=== PATIENT | female | born 1990 | race Caucasian/White ===

== ENCOUNTER 2017-05-17 08:29 | Emergency (ER) | payer SELFPAY ==
[~2017-05-17] VITALS: Ht 162.6 cm; Wt 97.5 kg
[~2017-05-17 08:29] MED LIST: ALBU8.5H IH; AMO875 PO; CETI10CA8 PO; CLOT15CR64 TP; DULERAPT INH; ETHI1TAB26 PO; FAMO20TA28 PO; FOLI-91 PO; LORA-788 PO; NORG1TAB76 PO; ONDA4TAB PO; PANT40TA65 PO; PRO25 PO; SODI51CR DT
--- NOTE | 2017-05-17 08:36 | ER Report ---
History and Physical Time Seen By MD: 08:35 HPI/ROS CHIEF COMPLAINT: Respiratory distress HISTORY OF PRESENT ILLNESS: Patient is a 26-year-old female with past medical history significant for asthma who presents to the emergency department with increased work of breathing and shortness of breath since 2 AM last night. The patient is out of her rescue inhaler so had no treatment prior to arrival to the emergency department. She is also has been complaining of flulike symptoms over the last 48 hours. She attempted to go to work today but because the shortness of breath was so pronounced she called off work and came to the emergency department. REVIEW OF SYSTEMS: Constitutional: Body aches, chills Eyes: No discharge. ENT: No sore throat. Cardiovascular: No chest pain, no palpitations. Respiratory: Dry cough, increased work of breathing and wheezing Gastrointestinal: No abdominal pain, no vomiting. Genitourinary: No hematuria. Musculoskeletal: No back pain. Skin: No rashes. Neurological: No headache. Allergies: Coded Allergies: latex (Verified Allergy, Intermediate, HIVES, 05/17/17) Home Meds Active Scripts Prednisone (PREDNISONE) 20 Mg Tablet, 60 MG PO QDAY, #12 TAB 0 Refills first dose on 05/18/17 Prov:YOLANDA YA MD 05/17/17 Albuterol Sulfate 0.083% (ALBUTEROL SULFATE 0.083%) 2.5 Mg/3 Ml Vial.neb, 2.5 MG INH Q4-6H for cough, #1 BOX 1 Refill Prov:YOLANDA YA MD 05/17/17 Reported Medications Cetirizine Hcl (ZYRTEC) 10 Mg Capsule, 10 MG PO QDAY, CAPSULE 07/06/15 Albuterol Sulfate 90 Mcg/Act (PROAIR HFA 90 MCG/ACT) 8.5 Gm Hfa.aer.ad, 1-2 PUFF IH 3-4XD, INHALER 07/06/15 Folic Acid/Mv,Fe,Other Min (ONE DAILY FOR WOMEN TABLET) 1 Each Tablet, 1 EACH PO QDAY 07/06/15 Mometasone/Formoterol (DULERA 200 MCG/5 MCG INHALER) 13 Gm Inh, 13 GM INH BID, INH 07/06/15 Discontinued Reported Medications Sodium Fluoride (SF 5000 PLUS) 51 Gm Cream..g., 51 GM DT QDAY 07/06/15 Norgestrel-Ethinyl Estradiol (CRYSELLE) 1 Each Tablet, 1 EACH PO QDAY 07/06/15 Clotrimazole/Betamethasone Dip (CLOTRIMAZOLE-BETAMETHASONE CRM) 15 Gm Cream..g. , 1 ROBER TP BID 07/06/15 Discontinued Scripts Pantoprazole Sodium (PANTOPRAZOLE SODIUM) 40 Mg Tablet.dr, 1 TAB PO BID, #60 TAB.SR 2 Refills Take 1 tablet 1/2 hour before your morning meal and 1 tablet 1/2 hour before your evening meal Prov:ADELINA JACKSON MD 07/06/15 Past Medical/Surgical History Past medical history for asthma Hx Smoking: Yes (5 CIGS/DAY SINCE 2010) Smoking Status: Current: Every Day Smoker Hx Alcohol Use: Yes Constitutional Vital Sign - Last 24 Hours 05/17/17 05/17/17 05/17/17 05/17/17 08:36 08:37 08:40 08:48 Temp 98.5 Pulse 122 109 Resp 28 B/P (MAP) 114/76 114/76 (89) Pulse Ox 82 O2 Delivery Room Air O2 Flow Rate 4.0 05/17/17 05/17/17 05/17/17 05/17/17 08:48 08:50 08:50 08:59 Pulse 112 Resp 24 Pulse Ox 93 96 O2 Delivery Nasal Cannula Nasal Cannula O2 Flow Rate 4.0 4.0 05/17/17 05/17/17 05/17/17 05/17/17 09:14 09:29 09:30 09:32 Pulse 116 105 Resp 23 B/P (MAP) 123/89 (100) 102/66 (78) Pulse Ox 92 05/17/17 05/17/17 05/17/17 05/17/17 09:32 09:35 09:35 09:35 Pulse 103 102 Resp 7 Pulse Ox 94 98 98 O2 Delivery Nasal Cannula Nasal Cannula O2 Flow Rate 4.0 4.0 05/17/17 05/17/17 05/17/17 05/17/17 10:00 10:05 10:08 10:08 Pulse 111 105 Resp 9 16 B/P (MAP) 98/73 (81) Pulse Ox 90 97 O2 Delivery Nasal Cannula O2 Flow Rate 4.0 05/17/17 05/17/17 05/17/1705/17/18 10:09 10:09 10:30 10:35 Pulse 106 118 Resp 21 B/P (MAP) 114/84 (94) Pulse Ox 99 89 O2 Delivery Nasal Cannula O2 Flow Rate 4.0 05/17/17 10:40 Pulse Ox 85 O2 Delivery Room Air Physical Exam General Appearance: The patient is alert, has no immediate need for airway protection and no signs of toxicity. She does have increased work of breathing Eyes: Pupils equal and round no pallor or injection. ENT, Mouth: Mucous membranes are moist. Respiratory: Patient has tachypnea, is using accessory muscles of respiration. Has audible wheeze with cough very decreased breath sounds Cardiovascular: Regular rate and rhythm. [ ] Gastrointestinal: Abdomen is soft and non tender, no masses, bowel sounds normal. Neurological: Awake and alert Skin: Warm and dry, no rashes. Musculoskeletal: Neck is supple non tender. Extremities are nontender, nonswollen and have full range of motion. Medical Decision Making Data Points Result Diagram: 05/17/17 0850 05/17/17 0850 Laboratory Hematology Test 05/17/17 08:40 05/17/17 08:50 Influenza Virus Type A (PCR) Negative (NEGATIVE) Influenza Virus Type B (PCR) Negative (NEGATIVE) Red Blood Count 5.54 M/uL (4.17-5.56) Mean Corpuscular Volume 87.8 fL (80.0-96.0) Mean Corpuscular Hemoglobin 29.9 pg (26.0-33.0) Mean Corpuscular Hemoglobin Concent 34.1 g/dL (32.0-36.0) Red Cell Distribution Width 13.2 % (11.5-14.5) Mean Platelet Volume 9.0 fL (7.2-11.1) Neutrophils (%) (Auto) 70.7 % (39.4-72.5) Lymphocytes (%) (Auto) 13.5 % (17.6-49.6) Monocytes (%) (Auto) 11.7 % (4.1-12.4) Eosinophils (%) (Auto) 3.0 % (0.4-6.7) Basophils (%) (Auto) 1.1 % (0.3-1.4) Nucleated RBC Relative Count (auto) 0.1 /100WBC Neutrophils # (Auto) 5.7 K/uL (2.0-7.4) Lymphocytes # (Auto) 1.1 K/uL (1.3-3.6) Monocytes # (Auto) 0.9 K/uL (0.3-1.0) Eosinophils # (Auto) 0.2 K/uL (0.0-0.5) Basophils # (Auto) 0.1 K/uL (0.0-0.1) Nucleated RBC Absolute Count (auto) 0.01 K/uL Sodium Level 140 mmol/L (137-145) Potassium Level 4.0 mmol/L (3.5-5.0) Chloride Level 107 mmol/L (98-107) Carbon Dioxide Level 19 mmol/L (22-31) Blood Urea Nitrogen 8 mg/dl (7-18) Creatinine 0.80 mg/dl (0.52-1.04) Glomerular Filtration Rate Calc > 60.0 Random Glucose 99 mg/dl (75-110) Calcium Level 9.5 mg/dl (8.4-10.2) Total Bilirubin 0.9 mg/dl (0.2-1.3) Aspartate Amino Transf (AST/SGOT) 40 U/L (0-35) Alanine Aminotransferase (ALT/SGPT) 54 U/L (0-56) Alkaline Phosphatase 83 U/L (0-126) Total Protein 8.2 gm/dl (6.3-8.2) Albumin 4.3 g/dl (3.5-5.0) Human Chorionic Gonadotropin, Qual Negative (NEGATIVE) Chemistry Test 05/17/17 08:40 05/17/17 08:50 Influenza Virus Type A (PCR) Negative (NEGATIVE) Influenza Virus Type B (PCR) Negative (NEGATIVE) White Blood Count 8.1 k/uL (4.5-11.0) Red Blood Count 5.54 M/uL (4.17-5.56) Hemoglobin 16.6 g/dL (12.0-16.0) Hematocrit 48.6 % (34.0-47.0) Mean Corpuscular Volume 87.8 fL (80.0-96.0) Mean Corpuscular Hemoglobin 29.9 pg (26.0-33.0) Mean Corpuscular Hemoglobin Concent 34.1 g/dL (32.0-36.0) Red Cell Distribution Width 13.2 % (11.5-14.5) Platelet Count 230 K/uL (150-450) Mean Platelet Volume 9.0 fL (7.2-11.1) Neutrophils (%) (Auto) 70.7 % (39.4-72.5) Lymphocytes (%) (Auto) 13.5 % (17.6-49.6) Monocytes (%) (Auto) 11.7 % (4.1-12.4) Eosinophils (%) (Auto) 3.0 % (0.4-6.7) Basophils (%) (Auto) 1.1 % (0.3-1.4) Nucleated RBC Relative Count (auto) 0.1 /100WBC Neutrophils # (Auto) 5.7 K/uL (2.0-7.4) Lymphocytes # (Auto) 1.1 K/uL (1.3-3.6) Monocytes # (Auto) 0.9 K/uL (0.3-1.0) Eosinophils # (Auto) 0.2 K/uL (0.0-0.5) Basophils # (Auto) 0.1 K/uL (0.0-0.1) Nucleated RBC Absolute Count (auto) 0.01 K/uL Glomerular Filtration Rate Calc > 60.0 Calcium Level 9.5 mg/dl (8.4-10.2) Total Bilirubin 0.9 mg/dl (0.2-1.3) Aspartate Amino Transf (AST/SGOT) 40 U/L (0-35) Alanine Aminotransferase (ALT/SGPT) 54 U/L (0-56) Alkaline Phosphatase 83 U/L (0-126) Total Protein 8.2 gm/dl (6.3-8.2) Albumin 4.3 g/dl (3.5-5.0) Human Chorionic Gonadotropin, Qual Negative (NEGATIVE) EKG/Imaging Imaging FACILITY: [facility] - [place] PATIENT NAME: Lashonda Mcgill : 1990 MR: [id number] V: [id number] EXAM DATE: [id number] ORDERING PHYSICIAN: YOLANDA YA TECHNOLOGIST: Location: [facility] - [place] Patient: Lashonda Mcgill : 1990 Visit/Account:[id number] Date of Sevice: 05/17/2017 CHEST PA AND LAT Indication: RESP DISTRESS Comparison: None. Findings: Lungs: Clear. Mediastinum/pulmonary vasculature: Heart size and pulmonary vasculature are normal. Bones/soft tissues: Normal. IMPRESSION: Clear lungs. Report Dictated By: Tarun Marisabel at 05/17/2017 9:28 AM Report E-Signed By: Tarun Marisabel at 05/17/2017 9:29 AM WSN:JOSE ED Course/Re-evaluation ED Course Patient with respiratory distress. Plan at this time will be to start an IV we will check CBC electrolytes chest x-ray influenza swab. We'll do 1 hour long albuterol nebulizer with Atrovent along with 125 mg of IV Solu-Medrol. We will also place the patient on oxygen. Re-evaluation 05/17/2017 10:38:35 am patient improved blood work and a chest x-ray are unremarkable. Patient with asthma exacerbation. Plan at this time I will be to discharge the patient home with prescription for albuterol nebulizer, home O2, albuterol prescription along with prednisone. Decision to Disposition Date: May 17, 2017 Decision to Disposition Time: 12:40 Depart Departure Latest Vital Signs Vital Signs Date Time Temp Pulse Resp B/P (MAP) Pulse Ox O2 Delivery O2 Flow Rate FiO2 05/17/17 10:40 85 Room Air 05/17/17 10:35 118 21 05/17/17 10:30 114/84 (94) 05/17/17 10:09 4.0 05/17/17 08:36 98.5 Impression: Primary Impression: Asthma exacerbation Condition: Improved Disposition: HOME OR SELF-CARE Referrals: ADELINA CARR MD (PCP) New Scripts Prednisone (PREDNISONE) 20 Mg Tablet 60 MG PO QDAY, #12 TAB 0 Refills first dose on 05/18/17 Prov: YOLANDA YA MD 05/17/17 Albuterol Sulfate 0.083% (ALBUTEROL SULFATE 0.083%) 2.5 Mg/3 Ml Vial.neb 2.5 MG INH Q4-6H for cough, #1 BOX 1 Refill Prov: YOLANDA YA MD 05/17/17 Departure Forms: ER Transition Record, Home Oxygen, Nebulizer RX, Durable Medical Equipment-Oxygen: Oxygen Concentrator, Portable Oxygen Gas, Nebulizer Reason for Use/Diagnosis: asthma excaerbation Start Date of the Order: May 17, 2017 Dosage or Concentration (if applicable) - LPM: 4 Route of Administration (if applicable): Nasal Cannula Frequency of Use: Continuous Duration Home O2 Required: 30 Duration Units: Days Room Air Oxygen Saturation: 85 ER Prescribing Physician's Name: Yolanda VILLAREAL Numbers for Local ER MDs: Ray [phone] Medications Reconciliation, Off Work/School Form, School or Work Release? : Work Number of days to be released: 2 Patient Portal Information Problem Qualifiers Primary Impression: Asthma exacerbation Asthma severity: moderate Asthma persistence: persistent Qualified Codes: J45.41 - Moderate persistent asthma with (acute) exacerbation YOLANDA YA MD May 17, 2017 08:36
[2017-05-17] MEDS ORDERED: ALBUTEROL 2.5 MG/0.5ML ER ONLY NEB ONE (08:40)
[2017-05-17] MEDS ORDERED: IPRATROPIUM 0.5MG/2.5ML NEB NEB ONE ×2 (08:40→09:45)
[2017-05-17] MEDS ORDERED: methylPREDNIS SUCC 125 MG/2ML IVP ONE (08:40)
[2017-05-17 09:10] LABS: PLATELET COUNT, AUTOMATED 230 K/uL (150-450)
[2017-05-17] MEDS ORDERED: ALBUTEROL 2.5 MG/3 ML NEB NEB ONE ×3 (09:25→10:00)
[2017-05-17] MEDS ORDERED: ALBUTEROL/IPRATROPIUM 3 ML NEB NEB ONE (09:30)
--- NOTE | 2017-05-17 09:33 | RADIOLOGY IMAGING REPORT ---
FACILITY: [facility] - [place], [place] PATIENT NAME: Lashonda Mcgill : 1990 MR: [id number] V: [id number] EXAM DATE: ORDERING PHYSICIAN: YOLANDA YA TECHNOLOGIST: Location: [facility] - [place] Patient: Lashonda Mcgill : 1990 Visit/Account:[id number] Date of Sevice: 05/17/2017 CHEST PA AND LAT Indication: RESP DISTRESS Comparison: None. Findings: Lungs: Clear. Mediastinum/pulmonary vasculature: Heart size and pulmonary vasculature are normal. Bones/soft tissues: Normal. IMPRESSION: Clear lungs. Report Dictated By: Tarun Petit at 05/17/2017 9:28 AM Report E-Signed By: Tarun Petit at 05/17/2017 9:29 AM WSN:[email or web address]
[2017-05-17 10:30] VITALS: BP 114/84
[2017-05-17] MEDS ORDERED: ALBU2.5V36 INH (10:35)
[2017-05-17] MEDS ORDERED: PRED20TA6 PO (10:35)
[2017-05-17] MEDS ORDERED: ALBUTEROL SULFATE 90 MCG/ACT 8.5 GM HNH INH ONE (10:40)
== END 2017-05-17 12:23 | disposition home or self-care (01) ==
LOC: ER 08:36
DX: J45.41 Moderate persistent asthma with (acute) exacerbation (principal)
CPT/HCPCS: 71046; 84703; 85025; 87502; 94640; 96374; 99284; J2930; J7620; J7644; 82040; 82247; 82310; 82374; 82435; 82565; 82947; 84075; 84132; 84155; 84295; 84450; 84460; 84520